=== PATIENT | male | born 1985 | race Caucasian/White ===

== ENCOUNTER 2017-02-21 19:57 | Emergency (ER) | payer OTHER ==
[~2017-02-21] VITALS: Ht 198.1 cm; Wt 167.8 kg
[~2017-02-21 19:57] MED LIST: ACETAMINOPHEN-1 EAC1 PO; CELEXA20 MG PO; COPAXONE40 MG/1 ML SQ; HYDROCODONE-AP1 EAC6 PO; LEVAQUIN 500 M500 M2 PO; PRILOSEC 20 MG20 MG PO; UNICOMPLEX M TA1 TA1 PO
[2017-02-21] MEDS ORDERED: DOXYCYCLINE 10100 MG PO (20:22)
[2017-02-21 20:32] VITALS: BP 142/99
== END 2017-02-21 20:32 | disposition home or self-care (01) ==
LOC: ER 19:57
DX: L73.9 Follicular disorder, unspecified (principal); L02.415 Cutaneous abscess of right lower limb; F10.99 Alcohol use, unspecified with unspecified alcohol-induced disorder; Z88.2 Allergy status to sulfonamides